=== PATIENT | female | born 1970 | race Caucasian/White ===

== ENCOUNTER 2016-11-21 23:24 | Emergency (ER) | payer MEDICARE, OTHER ==
[~2016-11-21] VITALS: Ht 175.3 cm; Wt 131.5 kg
[~2016-11-21 23:24] MED LIST: ALBU8.5H4 IH; CLON1TAB PO; ESCI20TA PO; GABA100C PO; LAMO150T2 PO
[2016-11-21 23:51] VITALS: BP 174/108
[2016-11-22] MEDS ORDERED: HYDROCODONE/APAP 10/325MG 1 EA TABLET ONE (00:16)
[2016-11-22] MEDS ORDERED: HYDROCODONE/APAP 10/325MG 1 EA TABLET PO ONE (00:30)
== END 2016-11-22 00:23 | disposition home or self-care (01) ==
LOC: ER 23:26
DX: K04.7 Periapical abscess without sinus (principal); J45.909 Unspecified asthma, uncomplicated; E11.9 Type 2 diabetes mellitus without complications; F41.0 Panic disorder [episodic paroxysmal anxiety]; F43.10 Post-traumatic stress disorder, unspecified; F32.9 Major depressive disorder, single episode, unspecified; F17.200 Nicotine dependence, unspecified, uncomplicated; Z90.710 Acquired absence of both cervix and uterus; Z88.0 Allergy status to penicillin; Z88.6 Allergy status to analgesic agent; Z88.5 Allergy status to narcotic agent; Z88.1 Allergy status to other antibiotic agents; Z88.8 Allergy status to other drugs, medicaments and biological substances; Z98.890 Other specified postprocedural states
CPT/HCPCS: 99283; A4606; Z7610

== ENCOUNTER 2017-06-12 09:24 | Outpatient (CLI) | payer MEDICARE, OTHER | END 2017-06-12 23:59 | disposition home or self-care (01) | LOC: MRI 09:24 | PROVIDERS: ATTEND Legal Medicine | DX: M75.102 Unspecified rotator cuff tear or rupture of left shoulder, not specified as traumatic (principal); M75.02 Adhesive capsulitis of left shoulder | CPT/HCPCS: 73221-TC ==

== ENCOUNTER 2017-07-12 07:30 | Day surgery (SDC) | payer MEDICARE, OTHER ==
[2017-07-12] MEDS ORDERED: MIDAZOLAM HCL 2 MG/2ML VIAL ONE (08:42)
[2017-07-12] MEDS ORDERED: FENTANYL PF 100MCG/2ML AMPUL ONE (08:43)
[2017-07-12] MEDS ORDERED: methylPREDNISolone ACETATE 80 MG/ML VIAL ONE (10:04)
[2017-07-12] MEDS ORDERED: LIDOCAINE 1% INJ 50 ML MDV IJ ONE (10:04)
[2017-07-12] MEDS ORDERED: HYDROMORPHONE INJ 2 MG/ML DISP.SYRIN ONE ×2 (10:58→11:32)
[2017-07-12] MEDS ORDERED: ONDANSETRON HCL/PF 4 MG/2 ML VIAL ONE (11:32)
== END 2017-07-12 12:50 | disposition home or self-care (01) ==
LOC: DS 07:30
PROVIDERS: ATTEND Specialist
DX: M75.42 Impingement syndrome of left shoulder (principal); M19.012 Primary osteoarthritis, left shoulder; M65.812 Other synovitis and tenosynovitis, left shoulder; F32.9 Major depressive disorder, single episode, unspecified; F41.9 Anxiety disorder, unspecified; K21.9 Gastro-esophageal reflux disease without esophagitis; E11.9 Type 2 diabetes mellitus without complications; I10 Essential (primary) hypertension; J44.9 Chronic obstructive pulmonary disease, unspecified; F17.210 Nicotine dependence, cigarettes, uncomplicated; E66.01 Morbid (severe) obesity due to excess calories; Z88.8 Allergy status to other drugs, medicaments and biological substances; Z88.1 Allergy status to other antibiotic agents; Z90.710 Acquired absence of both cervix and uterus; Z98.890 Other specified postprocedural states; Z79.899 Other long term (current) drug therapy
CPT/HCPCS: 82962-TC; A4217; A4565; J0690; J1040; J1100; J1170; J2250; J2405; J2704; J3010; J3490; Z7610

== ENCOUNTER 2017-07-16 21:03 | Emergency (ER) | payer MEDICARE, OTHER ==
[~2017-07-16] VITALS: Ht 175.3 cm; Wt 133.4 kg
--- NOTE | 2017-07-16 21:03 | NUR ---
BIB FRIEND C/O L SHOULDER PAIN S/P SURGERY HERE ON MONDAY. VSS NAD A/OX4 ABLE TO MAKE NEEDS KNOWN. WILL CONTINUE TO MONITOR FOR ANY CHANGES DURING THE SHIFT.
--- NOTE | 2017-07-16 22:37 | NUR ---
ER MD VITALE AT BEDSIDE
[2017-07-16 23:07] VITALS: BP 129/81
== END 2017-07-16 23:08 | disposition home or self-care (01) ==
LOC: ER 21:06
DX: G89.18 Other acute postprocedural pain (principal); M25.512 Pain in left shoulder; E11.9 Type 2 diabetes mellitus without complications; F32.9 Major depressive disorder, single episode, unspecified; F41.9 Anxiety disorder, unspecified; I10 Essential (primary) hypertension; J45.909 Unspecified asthma, uncomplicated; F17.200 Nicotine dependence, unspecified, uncomplicated; M75.102 Unspecified rotator cuff tear or rupture of left shoulder, not specified as traumatic; M75.42 Impingement syndrome of left shoulder; Z90.710 Acquired absence of both cervix and uterus; Z88.6 Allergy status to analgesic agent
CPT/HCPCS: A4606; Z7610

== ENCOUNTER 2018-01-30 16:06 | Inpatient (IN) | payer MEDICARE, OTHER ==
[~2018-01-30] VITALS: Ht 172.7 cm; Wt 124.7 kg
[2018-01-30 17:20] VITALS: BP 141/89
--- NOTE | 2018-01-30 18:00 | NUR ---
MS RN RECEIVED A NEW ADMISSION,UNDER DR. MARIE, 47 YEAR OLD FEMALE,CAME IN W/ COMPLAIN OF ABDOMINAL PAIN, NOT IN ANY FORM OF DISTRESS. AWAKE ALERT,ORIENTED X4,DENIES PAIN AT THIS TIME,ALL NEEDS ATTENDED.
--- NOTE | 2018-01-30 18:48 | NUR ---
MS AIR MOVING TECHNICIAN DONE, PAGED DR. MARIE FOR ADMISSION ORDERS.
[2018-01-30] MEDS ORDERED: ALBU18HF2 INH (18:50)
[2018-01-30] MEDS ORDERED: METF-442 PO (18:50)
[2018-01-30] MEDS ORDERED: ESCI20TA PO (18:50)
[2018-01-30] MEDS ORDERED: CLON1TAB PO (18:50)
[2018-01-30] MEDS ORDERED: GABA600T12 PO (18:50)
[2018-01-30] MEDS ORDERED: LAMO150T2 PO (18:50)
[2018-01-30] MEDS ORDERED: CLON0.1T PO (18:50)
[2018-01-30] MEDS ORDERED: TRINTELLIX (18:50)
[2018-01-30] MEDS ORDERED: GUAI600T53 PO (18:50)
[2018-01-30] MEDS ORDERED: CLON2TAB PO (18:50)
[2018-01-30] MEDS ORDERED: DEXL60CA3 PO (18:50)
[2018-01-30] MEDS ORDERED: LURA40TA PO (18:50)
[2018-01-30] MEDS ORDERED: HYDR-4354 PO (18:50)
[2018-01-30 18:51] VITALS: BP 141/89
--- NOTE | 2018-01-30 19:00 | NUR ---
MS RN ON BED, NO DISTRESS NOTED, WILL ENDORSED TO COMPUTER HARDWARE DEVELOPER FOR CONTINUITY OF CARE.
--- NOTE | 2018-01-30 19:30 | NUR ---
MS RN OPENING NOTES: RECEIVED PT ON ROOM AIR AND IS TOLERATING WELL. NO S/S OF DISTRESS. NO SOB NOTED. PT SITTING UP AT BEDSIDE AT THIS TIME WITH CAREGIVER AT BEDSIDE. NO IV NOTED. NO DIET ORDER FOR NOW. INFORMED PT THAT SHE WILL BE UPDATED ONCE MD CALLS BACK. BED KEPT IN LOW, LOCKED POSITION, AND SIDE RAILS X 2UP. WILL CONTINUE TO MONITOR PT.
--- NOTE | 2018-01-30 19:43 | NUR ---
MS RN NOTES: PAGED DR. MARIE. LEFT VOICEMAIL. AWAITING CALL BACK FOR ORDERS.
--- NOTE | 2018-01-30 19:49 | NUR ---
MS RN NOTES: SPOKE WITH DR. MARIE. GOT ORDER FOR CLEAR LIQUIDS TONIGHT AND NPO POST MIDNIGHT. ALSO GOT ORDER FOR NICOTINE 21GRAM PATCH STARTING TONIGHT. ORDER FOR MORPHINE SULF 2 MG IV Q4HR PRN PAIN, TYLENOL 650MG PO Q6HR FOR HEADACHE, MILD PAIN, TEMPERATURE; LABS TONIGHT CBC, CMP, AMYLASE, LIPASE, HEPATIC PANEL. FOR AM: US AB IN AM, CT AB/PELVIS WITH ORAL CONTRAST. IN ADDITION. ORDERS FOR ACCUCHEKS ACHS LOW SLIDING SCAIL, PROTONIX 40MG IV Q12HR TONIGHT AND ZOFRAN 4MG Q6HR IV N/V. ADMIT TO MEDSURG AB PAIN WITH N/V , ACTIVITY BR WITH BRP. Addendum: 01/31/18 at 0229 by JANIS SULTANA RN SLIDING SCALE ZOFRAN 4MG IV Q6HR PRN
[2018-01-30 20:00] VITALS: BP 134/71
[2018-01-30] MEDS ORDERED: DEXTROSE 50%-WATER 50 ML DISP.SYRIN IV PRN (20:00)
[2018-01-30] MEDS ORDERED: NICOTINE PATCH (21MG) 21 MG PATCH.TD24 TD SCH (20:00)
[2018-01-30] MEDS ORDERED: GUAIFENESIN LA 600 MG TABLET.SA PO PRN (20:00)
[2018-01-30] MEDS ORDERED: HYDROCODONE/APAP 10/325MG 1 EA TABLET PO PRN (20:00)
[2018-01-30] MEDS ORDERED: ONDANSETRON HCL/PF 4 MG/2 ML VIAL IV PRN (20:00)
[2018-01-30] MEDS ORDERED: ACETAMINOPHEN 325 MG TABLET PO PRN (20:00)
[2018-01-30] MEDS ORDERED: TEMAZEPAM 15 MG CAPSULE PO PRN (20:00)
[2018-01-30] MEDS ORDERED: HYDROMORPHONE 1 MG/1 ML DISP.SYRIN IV PRN ×2 (20:30→21:00)
--- NOTE | 2018-01-30 20:30 | NUR ---
RN NOTES: PT ABLE TO PROVIDE LATUDA 20MG. BOTTLE BROUGHT TO PHARMACY. ALSO, PT NOT ABLE TO PROVIDE TRINTELLIX 5MG. Addendum: 01/31/18 at 0257 by JANIS SULTANA RN ASKED PT IF THERE ARE ANY OTHER MEDICATIONS IN PURSE. PT GUARDED ABOUT HAVING PURSE/BELONGINGS CHECKED. PT DENIED ANY OTHER MEDS WITH HER BELONGINGS.
[2018-01-30] MEDS ORDERED: IV NS 0.9% 1,000 ML BAG IV PRN (21:00)
[2018-01-30] MEDS ORDERED: IV NS 0.9% 1,000 ML IV PRN (21:00)
--- NOTE | 2018-01-30 21:06 | NUR ---
RN NOTES: NICODERM PATCH 21 MG PLACED ON LEFT UPPER ARM.
--- NOTE | 2018-01-30 21:08 | NUR ---
MS RN NOTES: PT REQUESTING TO HAVE CLONIDINE AND LATUDA AT 2230.
[2018-01-30 21:35] LABS: CALCIUM, SERUM 8.9 mg/dL (8.5-10.1); CREATININE 0.9 mg/dL (0.6-1.3); POTASSIUM 3.9 mmol/L (3.5-5.1)
[2018-01-30 21:39] LABS: BASOPHILS # (AUTO) 0.1 /CMM (0.0-0.2); BASOPHILS % (AUTO) 0.7 % (0.0-2.0); EOSINOPHILS % (AUTO) 5.3 % (0.0-6.0); HEMATOCRIT 40 % (33-45); HEMOGLOBIN 13.1 g/dL (11.5-14.8); LYMPHOCYTES # (AUTO) 4.8 /CMM (0.8-4.8); LYMPHOCYTES % (AUTO) 41.9 % (20.0-44.0); MEAN CORPUSCULAR HGB CONC 33 g/dl (31.0-36.0); MEAN CORPUSCULAR VOLUME 85 fL (82-100); MONOCYTES # (AUTO) 0.5 /CMM (0.1-1.30); NEUTROPHILS # (AUTO) 5.5 /CMM (1.8-8.9); NEUTROPHILS % (AUTO) 48.1 % (43.0-81.0); PLATELET COUNT (AUTO) 240 /CMM (150-450); WHITE BLOOD COUNT (AUTO) 11.4 K/uL (4.3-11.0)
--- NOTE | 2018-01-30 21:40 | NUR ---
MS RN NOTES: SPOKE WITH [facility]. NO NEED FOR CONSENT OR CHECKLIST FOR CT AB/PELVIS WITH ORAL CONTRAST. JUST TO BE NPO POST MIDNIGHT.
[2018-01-30 21:41] LABS: ALBUMIN 3.2 g/dL (3.4-5.0); BILIRUBIN,DIRECT 0.1 mg/dL (0.0-0.2); BILIRUBIN,TOTAL 0.3 mg/dL (0.2-1.0); TOTAL PROTEIN, SERUM 7.4 g/dL (6.4-8.2)
--- NOTE | 2018-01-30 21:47 | NUR ---
MS NDIAYE NOTES: PAGED DR. MARIE. Addendum: 01/31/18 at 0254 by JANIS SULTANA RN PT REQUESTING FOR DIFLUCAN FOR HER YEAST INFECTION AND BENADRYL FOR ITCHINESS. LEFT VOICEMAIL.
[2018-01-30] MEDS ORDERED: clonazePAM 1 MG TABLET PO SCH (22:00)
[2018-01-30] MEDS ORDERED: LATUDA 20 MG PO SCH (22:00)
[2018-01-30] MEDS: CLONIDINE HCL 0.1 MG TABLET PO SCH (22:31)
[2018-01-30] MEDS: BLOOD SUGAR DIAGNOSTIC 1 EACH STRIP IN SCH (22:31)
[2018-01-30] MEDS: INSULIN REGULAR, HUMAN 100 UNIT/ML 3 ML VIAL SQ PRN (22:46)
--- NOTE | 2018-01-30 22:50 | NUR ---
MS NDIAYE NOTES: BLOOD SUGAR WAS 321. 8 UNITS OF INSULIN WAS ADMINISTERED. PROVIDED JUICE TO PT. INSTRUCTED PT THAT SHE WILL BE NPO POST MIDNIGHT. Addendum: 01/31/18 at 0152 by JANIS SULTANA RN ARIAS ROMERO PROVIDED WELL.
[2018-01-30] MEDS: GABAPENTIN 300 MG CAPSULE PO SCH (23:12)
[2018-01-30] MEDS: PANTOPRAZOLE 40 MG VIAL IV SCH (23:13)
--- NOTE | 2018-01-30 23:15 | NUR ---
RN NOTES: PROTONIX IV JUST ADMINISTERED D/T PT REQUIRING IV. ACCU-VEIN OBTAINED TO START IV ON L HAND #22G.
[2018-01-31] MEDS ORDERED: ALBUTEROL FS 2.5 MG/0.5 ML VIAL.NEB NEB PRN (01:30)
[2018-01-31 04:00] VITALS: BP 115/63
[2018-01-31] MEDS: BLOOD SUGAR DIAGNOSTIC 1 EACH STRIP IN SCH (06:13)
--- NOTE | 2018-01-31 06:41 | NUR ---
MS RN CLOSING NOTES: ALL NEEDS WERE ATTENDED AND ANTICIPATED FOR. PT ASLEEP AT THIS TIME RESTING COMFORTABLY. PT HAS BEEN NPO SINCE MIDNIGHT. IV REMAINS BEING INFUSED AT NS 75ML/HR. BED KEPT IN LOW, LOCKED POSITION, AND SIDE RAILS X 2UP. WILL ENDORSE TO AM NURSE FOR CHERRIE.
[2018-01-31] MEDS: INSULIN REGULAR, HUMAN 100 UNIT/ML 3 ML VIAL SQ PRN (07:00)
--- NOTE | 2018-01-31 07:04 | NUR ---
MS RN NOTES: PT DOES NOT WANT NICOTINE PATCH ON HER LEFT ARM. EXPLAINED X 3. PT DOES NOT WANT IT SHE WANTS TO SLEEP AND IT HAS BEEN DISTURBING WITH HER SLEEP. NICODERM PATCH ON LEFT UPPER ARM REMOVED.
--- NOTE | 2018-01-31 07:06 | NUR ---
RN NOTES: L NARE MRSA SWAB COLLECTED AND PLACED IN REFRIGERATOR.
--- NOTE | 2018-01-31 07:30 | NUR ---
RN MS NOTES PT IN BED, ASLEEP, EASY TO AROUSE, NO COMPLAINT OF PAIN, RESPIRATIONS NORMAL, CALL LIGHT WITHIN REACH, IV FLUIDS INFUSING WELL, KEPT USED CAR LOT ATTENDANT BED.
[2018-01-31 08:00] VITALS: BP 106/61
[2018-01-31 09:00] VITALS: BP 106/61
[2018-01-31] MEDS ORDERED: clonazePAM 1 MG TABLET PO SCH (09:00)
[2018-01-31] MEDS: GABAPENTIN 300 MG CAPSULE PO SCH (09:00)
[2018-01-31] MEDS ORDERED: diphenhydrAMINE HCL 50 MG/ML VIAL IV PRN (09:00)
[2018-01-31] MEDS: CLONIDINE HCL 0.1 MG TABLET PO SCH (09:00)
[2018-01-31] MEDS ORDERED: ESCITALOPRAM OXALATE (10 MG) 10 MG TABLET PO SCH (09:00)
[2018-01-31] MEDS ORDERED: LamoTRIgine 100 MG TABLET PO SCH (09:00)
[2018-01-31] MEDS ORDERED: TRINTELLIX 5 MG SCH (09:00)
[2018-01-31] MEDS ORDERED: NICOTINE PATCH (14MG) 14 MG PATCH.TD24 TD SCH (09:00)
[2018-01-31] MEDS: PANTOPRAZOLE 40 MG VIAL IV SCH (09:00)
[2018-01-31] MEDS ORDERED: GABAPENTIN 300 MG CAPSULE PO SCH (09:00)
--- NOTE | 2018-01-31 09:00 | NUR ---
RN MS NOTES PT IN BED, SEEN BY DR. MARIE, PLAN OF CARE DISCUSSED WITH PT, VERBALIZED UNDERSTANDING, NEW ORDERS GIVEN BY MD, NOTED AND CARRIED OUT.
[2018-01-31] MEDS ORDERED: DIATR MEGLU/DIATRIZOATE SODIUM 30 ML BOTTLE (GASTROGRAPHIN) ONE (09:46)
--- NOTE | 2018-01-31 11:00 | NUR ---
RN MS NOTES PT IN BED, AWAKE, ALERT AND ORIENTED, NO COMPLAINT OF PAIN, NO NAUSEA, VOMITING OR DIARRHEA, PT REFUSED TO TAKE THE ORAL CONTRAST AND STATED THAT SHE DOES NOT WANT TO WAIT FOR 3 HOURS AND DO THE TEST, PER PT, SHE IS NOT AWARE THAT SHE WILL HAVE TO WAIT FOR 3 HOURS BEFORE THEY CAN DO THE CT SCAN BECAUSE OF THE ORAL CONTRAST, ALSO STATED THAT SHE DOES NOT WANT TO WAIT ANYMORE AND WANTS TO GO HOME, SHE SAID SHE IS NOT READY TO DO THIS NOW, DR. MARIE INFORMED OF THE PT'S DESIRE TO GO HOME, PER DR. MARIE, OK TO DISCHARGE PT AND TO CONTINUE HOME MEDS, EDUCATED PT TO FOLLOW UP WITH DR. MARIE AND TO CONTINUE WITH HER HOME MEDS, VERBALIZED UNDERSTANDING, BELONGINGS ACCOUNTED FOR, OWN MED FROM PHARMACY GIVEN TO PT, OFFERED FOOD TO PT BUT REFUSED, PROVIDED PT WITH JUICE AND CRACKERS, OFFERED WHEELCHAIR BUT PT REFUSED, PICKED UP BY CAREGIVER, ASSISTED TO HOSPITAL LOBBY, LEFT IN STABLE CONDITION.
== END 2018-01-31 11:00 | disposition home or self-care (01) | DRG 392 ==
LOC: MED 17:03
PROVIDERS: ADMIT Legal Medicine; ATTEND Legal Medicine
DX: A08.4 Viral intestinal infection, unspecified (principal); Z68.41 Body mass index [BMI] 40.0-44.9, adult; E44.1 Mild protein-calorie malnutrition; I10 Essential (primary) hypertension; F41.9 Anxiety disorder, unspecified; F32.9 Major depressive disorder, single episode, unspecified; E66.9 Obesity, unspecified; E11.65 Type 2 diabetes mellitus with hyperglycemia; Z88.8 Allergy status to other drugs, medicaments and biological substances
CPT/HCPCS: 36415; 80053-TC; 80076-TC; 82150-TC; 82962-TC; 83690-TC; 85025-TC; 87081-TC; C9113; G0378; J1170; J1815; J7030; Q9963

== ENCOUNTER 2018-06-23 22:26 | Emergency (ER) | payer MEDICARE, OTHER ==
[~2018-06-23] VITALS: Ht 172.7 cm; Wt 119.7 kg
[~2018-06-23 22:26] MED LIST changes: +ALBU18HF2 INH; -ALBU8.5H4 IH; +CLON0.1T PO; +CLON2TAB PO; +DEXL60CA3 PO; -GABA100C PO; +GABA600T12 PO; +GUAI600T53 PO; +HYDR-4354 PO; +LURA40TA PO; +METF-442 PO; +TRINTELLIX
--- NOTE | 2018-06-23 22:38 | NUR ---
CALLED PATIENT IN [place], WAS TOLD BY FAMILY MEMBER PATIENT WAS OUTSIDE SMOKING.
[2018-06-23 22:58] VITALS: BP 147/90
--- NOTE | 2018-06-24 00:04 | NUR ---
PT LEFT BEFORE [facility]
== END 2018-06-24 00:04 | disposition home or self-care (01) ==
LOC: ER 22:28
DX: F41.9 Anxiety disorder, unspecified (principal); I10 Essential (primary) hypertension; J45.909 Unspecified asthma, uncomplicated; K21.9 Gastro-esophageal reflux disease without esophagitis; E11.9 Type 2 diabetes mellitus without complications; F32.9 Major depressive disorder, single episode, unspecified; F17.200 Nicotine dependence, unspecified, uncomplicated; Z90.710 Acquired absence of both cervix and uterus; Z98.890 Other specified postprocedural states; Z88.6 Allergy status to analgesic agent; Z88.1 Allergy status to other antibiotic agents; Z60.2 Problems related to living alone

== ENCOUNTER 2018-07-27 09:31 | Outpatient (CLI) | payer MEDICARE, OTHER | END 2018-07-27 23:59 | disposition home or self-care (01) | LOC: MRI 09:31 | PROVIDERS: ATTEND Legal Medicine | DX: M48.061 Spinal stenosis, lumbar region without neurogenic claudication (principal); M51.26 Other intervertebral disc displacement, lumbar region; M46.97 Unspecified inflammatory spondylopathy, lumbosacral region | CPT/HCPCS: 72148-TC ==

== ENCOUNTER 2018-08-15 23:28 | Emergency (ER) | payer MEDICARE, BC, OTHER ==
[~2018-08-15] VITALS: Ht 175.3 cm; Wt 119.3 kg
--- NOTE | 2018-08-15 23:42 | NUR ---
BIBS FOR C/O SOB X 1 SINCE YESTERDAY, WORSE TODAY. PMH: ASTHMA.SATTING 97% ON RA. VSS. PLACED ON A MONITOR
[2018-08-15] MEDS ORDERED: Magnesium 1GM/D5W 100ML PREMIX 200 ML IV ONE (23:44)
[2018-08-15] MEDS ORDERED: ALBUTEROL FS 2.5 MG/3 ML VIAL.NEB ONE (23:50)
[2018-08-15] MEDS ORDERED: IPRATROPIUM NEB FS 0.5 MG/2.5 ML AMPUL.NEB ONE (23:50)
[2018-08-15] MEDS ORDERED: methylPREDNISolone SOD SUCC 125 MG/2ML VIAL ONE (23:55)
[2018-08-15] MEDS ORDERED: Magnesium 1GM/D5W 100ML PREMIX 100 ML IV ONE (23:55)
[2018-08-16] MEDS ORDERED: IPRATROPIUM NEB FS 0.5 MG/2.5 ML AMPUL.NEB NEB ONE
[2018-08-16] MEDS ORDERED: ALBUTEROL FS 2.5 MG/3 ML VIAL.NEB NEB ONE
[2018-08-16] MEDS ORDERED: IV NS 0.9% 1,000 ML BAG IV ONE
[2018-08-16] MEDS ORDERED: methylPREDNISolone SOD SUCC 125 MG/2ML VIAL IV ONE
--- NOTE | 2018-08-16 00:09 | NUR ---
NS ENDINFUSION TIME FOR NS: 0109 PER MD TO INFUSE EACH BAG OF 1 GR MG WITHIN 10 MINUTES: END INFUSION TIME FOR 1ST MG BA IV SITE: L HAND 22G
[2018-08-16] MEDS ORDERED: Magnesium 1GM/D5W 100ML PREMIX 100 ML IV ONE (00:12)
--- NOTE | 2018-08-16 00:20 | NUR ---
SECOND BAG OF MG WAS ADMINISTERED. END INFUSION TIME FOR THE 2ND MG BA
--- NOTE | 2018-08-16 02:37 | NUR ---
AWAKE AND ALERT , SITTING IN BED. RT AT THE BED SIDE FOR ABG DRAW
[2018-08-16 02:48] LABS: ABG BASE EXCESS -0.6 mmol/L; ABG OXYGEN SATURATION 92.5 % (92.0-98.5); ABG PCO2 36.4 mmHg (35.0-45.0); ABG PH 7.425 (7.350-7.450); ABG PO2 64.5 mmHg (75.0-100.0); AaDO2 41.6 mmHg; COHb 3.1 % (0.5-1.5); MetHb 0.5 % (0.0-1.5); O2Hb 89.2 % (94.0-97.0); SITE, ABG Left Radial; VENT MODE, BG RA
--- NOTE | 2018-08-16 03:33 | NUR ---
Patient discharged to home in stable condition. Rx & Written and verbal after care instructions given. Patient verbalizes understanding of instruction.
[2018-08-16 03:58] VITALS: BP 144/85
== END 2018-08-16 03:59 | disposition home or self-care (01) ==
LOC: ER 23:35
DX: J45.901 Unspecified asthma with (acute) exacerbation (principal); F17.210 Nicotine dependence, cigarettes, uncomplicated; K21.9 Gastro-esophageal reflux disease without esophagitis; F32.9 Major depressive disorder, single episode, unspecified; F41.9 Anxiety disorder, unspecified; E11.9 Type 2 diabetes mellitus without complications; I10 Essential (primary) hypertension; G89.29 Other chronic pain; M54.5 Low back pain; Z90.710 Acquired absence of both cervix and uterus; Z98.890 Other specified postprocedural states; Z88.6 Allergy status to analgesic agent; Z88.1 Allergy status to other antibiotic agents; Z60.2 Problems related to living alone
CPT/HCPCS: 36600 ×2; 71045; 82803; 93005 ×2; 94644; 96374; 96375; 99285; J2930; J3475 ×2; J7030

== ENCOUNTER 2018-08-22 11:14 | Emergency (ER) | payer MEDICARE, OTHER ==
[~2018-08-22] VITALS: Ht 172.7 cm; Wt 118.8 kg
--- NOTE | 2018-08-22 11:31 | NUR ---
C/O SOB, CHEST TIGHTNESS X 5 DAYS. WAS PREVIOUSLY TREATED FOR THE SAME WITHOUT IMPROVEMENT. O2 SAT 95% ON RA. NO ACUTE DISTRESS NOTED. NO OTHER COMPLAINTS AT THIS TIME. READY FOR EVAL.
[2018-08-22] MEDS ORDERED: predniSONE 20 MG TABLET ONE (11:43)
[2018-08-22] MEDS ORDERED: IPRATROPIUM NEB FS 0.5 MG/2.5 ML AMPUL.NEB ONE (11:48)
[2018-08-22] MEDS ORDERED: ALBUTEROL FS 2.5 MG/3 ML VIAL.NEB ONE (11:48)
--- NOTE | 2018-08-22 11:52 | NUR ---
RT AT BEDSIDE FOR BREATHING TX
[2018-08-22] MEDS ORDERED: predniSONE 20 MG TABLET PO ONE (12:00)
[2018-08-22] MEDS ORDERED: ALBUTEROL FS 2.5 MG/3 ML VIAL.NEB CONTNEB ONE (12:00)
[2018-08-22] MEDS ORDERED: IPRATROPIUM NEB FS 0.5 MG/2.5 ML AMPUL.NEB NEB ONE (12:00)
[2018-08-22] MEDS ORDERED: Magnesium 1GM/D5W 100ML PREMIX 200 ML IV ONE (12:12)
[2018-08-22] MEDS ORDERED: Magnesium 1GM/D5W 100ML PREMIX 0 ML IV ONE (12:17)
[2018-08-22 12:46] VITALS: BP 148/86
--- NOTE | 2018-08-22 12:46 | NUR ---
Patient discharged to home in stable condition. Written and verbal after care instructions given. Patient verbalizes understanding of instruction.
--- NOTE | 2018-08-22 12:53 | NUR ---
UNABLE TO DEPART PT. ADVANCED STATUS OFF ER TRACKER PER SECURITY GUARD SUPERVISOR
== END 2018-08-22 12:51 | disposition home or self-care (01) ==
LOC: ER 11:14
DX: J45.901 Unspecified asthma with (acute) exacerbation (principal); E11.9 Type 2 diabetes mellitus without complications; I10 Essential (primary) hypertension; K21.9 Gastro-esophageal reflux disease without esophagitis; F32.9 Major depressive disorder, single episode, unspecified; F41.9 Anxiety disorder, unspecified; F17.200 Nicotine dependence, unspecified, uncomplicated; Z90.710 Acquired absence of both cervix and uterus; Z98.890 Other specified postprocedural states; Z88.6 Allergy status to analgesic agent; Z88.1 Allergy status to other antibiotic agents; Z60.2 Problems related to living alone
CPT/HCPCS: 94640 ×2; 99284; J7512; J3475

== ENCOUNTER 2018-12-17 22:46 | Emergency (ER) | payer MEDICARE, OTHER ==
[~2018-12-17] VITALS: Ht 172.7 cm; Wt 119.7 kg
--- NOTE | 2018-12-17 22:48 | NUR ---
"BIBSELF C/O MIDSTERNAL CHEST PAIN RADIATING TO BACK X1 WEEK, WORSE TODAY +SOB, -HEADACHE, -NAUSEA, -VOMITING" PT AAOX4, -SOB, NAD NOTED, VSS ,NELSON MURPHY
[2018-12-17] MEDS ORDERED: diphenhydrAMINE HCL 50 MG CAPSULE ONE (23:21)
[2018-12-17] MEDS ORDERED: ONDANSETRON 4 MG TAB.RAPDIS ONE (23:21)
[2018-12-17] MEDS ORDERED: HYDROCODONE/APAP 10/325MG 1 EA TABLET ONE (23:21)
[2018-12-17 23:24] LABS: BASOPHILS # (AUTO) 0.1 /CMM (0.0-0.2); BASOPHILS % (AUTO) 0.6 % (0.0-2.0); EOSINOPHILS % (AUTO) 5.8 % (0.0-6.0); HEMATOCRIT 42 % (33-45); HEMOGLOBIN 14.3 g/dL (11.5-14.8); LYMPHOCYTES # (AUTO) 4.1 /CMM (0.8-4.8); MEAN CORPUSCULAR HGB CONC 34 g/dl (31.0-36.0); MEAN CORPUSCULAR VOLUME 89 fL (82-100); MONOCYTES # (AUTO) 0.5 /CMM (0.1-1.30); MONOCYTES % (AUTO) 4.6 % (2.0-12.0); NEUTROPHILS # (AUTO) 5.5 /CMM (1.8-8.9); PLATELET COUNT (AUTO) 252 /CMM (150-450); RED BLOOD CELL COUNT(AUTO) 4.65 MIL/uL (4.0-5.2); WHITE BLOOD COUNT (AUTO) 10.9 K/uL (4.3-11.0)
[2018-12-17] MEDS ORDERED: diphenhydrAMINE HCL 50 MG CAPSULE PO ONE (23:30)
[2018-12-17] MEDS ORDERED: HYDROCODONE/APAP 10/325MG 1 EA TABLET PO ONE (23:30)
[2018-12-17] MEDS ORDERED: ONDANSETRON 4 MG TAB.RAPDIS SL ONE (23:30)
[2018-12-17 23:46] LABS: ALBUMIN 3.4 g/dL (3.4-5.0); ALKALINE PHOSPHATASE 125 U/L (46-116); B-TYPE NATRIURETIC PEPTIDE 29 PG/ML (0-125); BILIRUBIN,TOTAL 0.4 mg/dL (0.2-1.0); CALCIUM, SERUM 8.3 mg/dL (8.5-10.1); CARBON DIOXIDE 27 mmol/L (21-32); CHLORIDE 97 mmol/L (98-107); POTASSIUM 4.6 mmol/L (3.5-5.1); SODIUM SERUM 130 mmol/L (136-145); TOTAL PROTEIN, SERUM 7.5 g/dL (6.4-8.2); UREA NITROGEN, BLOOD 9 mg/dL (7-18)
[2018-12-17 23:50] LABS: GLUCOSE 412 mg/dL (74-106)
[2018-12-18] MEDS ORDERED: INSULIN REGULAR, HUMAN 100 UNIT/ML 10 ML VIAL ONE (00:14)
[2018-12-18 00:16] LABS: ALANINE AMINOTRANSFERASE 21 U/L (12-78); ASPARTATE AMINOTRANSFERASE 34 U/L (15-37)
--- NOTE | 2018-12-18 01:15 | NUR ---
BG 333 TAKEN AT 0115, DR. AHMADI NOTIFIED. VERBAL ORDER OF 10UNITS OF REGULAR INSULIN TO BE GIVEN IV.
[2018-12-18] MEDS ORDERED: INSULIN REGULAR, HUMAN 100 UNIT/ML 10 ML VIAL IV ONE ×2 (02:00)
--- NOTE | 2018-12-18 02:54 | NUR ---
Patient discharged to home in stable condition. Written and verbal after care instructions given. Patient verbalizes understanding of instruction. IV removed. Catheter intact and site benign. Pressure and 4x4 applied to site. No bleeding noted.
[2018-12-18 02:55] VITALS: BP 121/60
== END 2018-12-18 02:57 | disposition home or self-care (01) ==
LOC: ER 22:49
DX: R07.89 Other chest pain (principal); G89.4 Chronic pain syndrome; E66.9 Obesity, unspecified; F41.9 Anxiety disorder, unspecified; F32.9 Major depressive disorder, single episode, unspecified; I10 Essential (primary) hypertension; J45.909 Unspecified asthma, uncomplicated; K21.9 Gastro-esophageal reflux disease without esophagitis; E11.9 Type 2 diabetes mellitus without complications; F17.200 Nicotine dependence, unspecified, uncomplicated; Z90.710 Acquired absence of both cervix and uterus; Z98.890 Other specified postprocedural states; Z88.6 Allergy status to analgesic agent; Z88.1 Allergy status to other antibiotic agents; Z60.2 Problems related to living alone; Z79.899 Other long term (current) drug therapy; Z71.6 Tobacco abuse counseling; Z68.41 Body mass index [BMI] 40.0-44.9, adult
CPT/HCPCS: 36415 ×2; 71045; 76705; 80048; 80076; 82010; 82962 ×3; 83690; 83880; 84484 ×2; 85025; 85378; 93005; 96374; 96376; 99284; 99406; J1815; Q0162; Q0163

== ENCOUNTER 2019-01-08 23:08 | Emergency (ER) | payer MEDICARE, OTHER ==
[~2019-01-08] VITALS: Ht 172.7 cm; Wt 118.8 kg
[2019-01-09] MEDS ORDERED: CEPHALEXIN MONOHYDRATE 500 MG CAPSULE PO ONE ×2 (00:28→00:30)
[2019-01-09] MEDS ORDERED: IBUPROFEN 400 MG TABLET ONE (00:29)
[2019-01-09] MEDS ORDERED: SULFAMETH/TRIMETH 800/160 MG 1 UDTAB TABLET ONE (00:29)
[2019-01-09] MEDS ORDERED: SULFAMETH/TRIMETH 800/160 MG 1 UDTAB TABLET PO ONE (00:30)
[2019-01-09] MEDS ORDERED: IBUPROFEN 400 MG TABLET PO ONE (00:30)
--- NOTE | 2019-01-09 00:31 | NUR ---
[facility] STARTING 0030. PT IS IN BED AAOX4. BIBS W/ CG AT BEDSIDE. C/O L BREAST ABCESS . PER PT STARTED A SMALL PIMPLE 3-4 DAYS AGO. NOTED RED BUMP NO DRAINAGE. PAIN 11/29. MD WAS AT BEDSIDE FOR EVAL. ORDERS RECEIVED NOTED AND CARRIED OUT.
--- NOTE | 2019-01-09 01:00 | NUR ---
Patient discharged to home in stable condition. Written and verbal after care instructions given. Patient verbalizes understanding of instruction. Pt ambulatory with a steady gait
--- NOTE | 2019-01-09 01:50 | NUR ---
Note undone in EDM - 01/09/19 at 0153 by JACK ASSUMMED CARE STARTING 0030. PT IS IN BED AAOX4. BIBS W/ CG AT BEDSIDE. C/O L BREAST ABCESS . PER PT STARTED A SMALL PIMPLE 3-4 DAYS AGO. NOTED RED BUMP NO DRAINAGE. PAIN 11/29. MD WAS AT BEDSIDE FOR EVAL. ORDERS RECEIVED NOTED AND CARRIED OUT.
[2019-01-09 01:54] VITALS: BP 143/70
== END 2019-01-09 01:10 | disposition home or self-care (01) ==
LOC: ER 23:10
DX: N61.0 Mastitis without abscess (principal); I10 Essential (primary) hypertension; J45.909 Unspecified asthma, uncomplicated; K21.9 Gastro-esophageal reflux disease without esophagitis; E11.9 Type 2 diabetes mellitus without complications; F32.9 Major depressive disorder, single episode, unspecified; F41.9 Anxiety disorder, unspecified; F17.200 Nicotine dependence, unspecified, uncomplicated; Z90.710 Acquired absence of both cervix and uterus; Z98.890 Other specified postprocedural states; Z88.6 Allergy status to analgesic agent; Z88.1 Allergy status to other antibiotic agents; Z60.2 Problems related to living alone; Z79.899 Other long term (current) drug therapy
CPT/HCPCS: 76642-TC

== ENCOUNTER 2019-09-27 19:29 | Emergency (ER) | payer MEDICARE, OTHER ==
[~2019-09-27] VITALS: Ht 175.3 cm; Wt 117.0 kg
--- NOTE | 2019-09-27 19:50 | NUR ---
PT BIBSELF C/O FEVER OF 101.4, NORMAN, UPPER BACK PAIN AND SOB, TOOK ADVIL X4 AT 5PM. PT AOX4 RR EVEN AND UNLABORED. NO SOB NOTED. NO NVD AT THIS TIME. NO ACUTE DISTRESS NOTED. PT WAITING FOR MD MURPHY.
--- NOTE | 2019-09-27 20:27 | NUR ---
RADIOLOGY AT BEDSIDE FOR CXR
--- NOTE | 2019-09-27 20:50 | NUR ---
BLOOD DRAW AND COVID SWAB COLLECTED AND SENT TO LAB
[2019-09-27 20:58] LABS: BASOPHILS # (AUTO) 0.1 /CMM (0.0-0.2); BASOPHILS % (AUTO) 0.7 % (0.0-2.0); EOSINOPHILS % (AUTO) 5.9 % (0.0-6.0); HEMATOCRIT 42 % (33-45); LYMPHOCYTES # (AUTO) 1.3 /CMM (0.8-4.8); LYMPHOCYTES % (AUTO) 16.8 % (20.0-44.0); MEAN CORPUSCULAR HGB CONC 34 g/dl (31.0-36.0); MEAN CORPUSCULAR VOLUME 91 fL (82-100); MONOCYTES # (AUTO) 0.1 /CMM (0.1-1.30); MONOCYTES % (AUTO) 1.4 % (2.0-12.0); NEUTROPHILS % (AUTO) 75.2 % (43.0-81.0); PLATELET COUNT (AUTO) 220 /CMM (150-450); RED BLOOD CELL COUNT(AUTO) 4.58 MIL/uL (4.0-5.2)
[2019-09-27 21:11] LABS: CALCIUM, SERUM 8.8 mg/dL (8.5-10.1); CARBON DIOXIDE 30 mmol/L (21-32); CHLORIDE 97 mmol/L (98-107); CREATININE 0.9 mg/dL (0.6-1.3); GLUCOSE 269 mg/dL (74-106); POTASSIUM 3.9 mmol/L (3.5-5.1); SODIUM SERUM 132 mmol/L (136-145); UREA NITROGEN, BLOOD 8 mg/dL (7-18)
[2019-09-27 21:14] LABS: APPEARANCE,URINE Clear (CLEAR); BILIRUBIN,URINE Negative (NEGATIVE); BLOOD, URINE Negative Ery/uL (NEGATIVE); COLOR,URINE Yellow (YELLOW); KETONES,URINE Negative (NEGATIVE); LEUKOCYTE ESTERASE ,URINE Trace (NEGATIVE); NITRITE, URINE Negative (NEGATIVE); PROTEIN,URINE Negative (NEGATIVE); UGLUCOSE >=1000 mg/dL (NEGATIVE); UROBILINOGEN,URINE 0.2 EU/dL (0.2)
[2019-09-27 21:30] LABS: ALANINE AMINOTRANSFERASE 147 U/L (12-78); ALBUMIN 3.5 g/dL (3.4-5.0); ALKALINE PHOSPHATASE 99 U/L (46-116); ASPARTATE AMINOTRANSFERASE 179 U/L (15-37); B-TYPE NATRIURETIC PEPTIDE 92 PG/ML (0-125); BILIRUBIN,TOTAL 0.7 mg/dL (0.2-1.0)
[2019-09-27 21:34] LABS: BACTERIA,URINE Few /HPF (None Seen); RBC,URINE 0-2 /HPF (0-2)
[2019-09-27 21:49] LABS: D-DIMER 0.65 mg/L(FEU (0.17-0.50)
[2019-09-27] MEDS ORDERED: KETOROLAC TROMETHAMINE INJ 30 MG/ML VIAL IV ONE (22:00)
[2019-09-27] MEDS ORDERED: KETOROLAC TROMETHAMINE INJ 30 MG/ML VIAL ONE (22:10)
[2019-09-27] MEDS ORDERED: IOHEXOL-350 100 ML VIAL IV ONE (22:22)
[2019-09-27] MEDS ORDERED: CT SWABBABLE VALVE TRANS SET 1 EA INFUS.SET MC ONE (22:23)
[2019-09-27 22:28] LABS: CREATINE KINASE, TOTAL 67 U/L (26-192); FERRITIN 242 ng/mL (8-388)
--- NOTE | 2019-09-27 22:47 | NUR ---
PT RETURNED FROM CT.
[2019-09-27 22:48] LABS: C-REACTIVE PROTEIN 9.4 mg/dL (0.0-0.9)
[2019-09-27] MEDS ORDERED: MAG HYDROX/AL HYDROX/SIMETH 30 ML UDC ONE (23:26)
[2019-09-27] MEDS ORDERED: MAG HYDROX/AL HYDROX/SIMETH 30 ML UDC PO ONE (23:30)
--- NOTE | 2019-09-27 23:33 | NUR ---
Patient discharged to home in stable condition. Written and verbal after care instructions given. Patient verbalizes understanding of instruction.IV removed. Catheter intact and site benign. Pressure and 4x4 applied to site. No bleeding noted. Pt ambulatory with a steady gait
[2019-09-27 23:34] VITALS: BP 132/72
== END 2019-09-27 23:37 | disposition home or self-care (01) ==
LOC: ER 19:29
DX: B34.9 Viral infection, unspecified (principal); R50.9 Fever, unspecified; Z20.828 Contact with and (suspected) exposure to other viral communicable diseases; E11.8 Type 2 diabetes mellitus with unspecified complications; Z79.84 Long term (current) use of oral hypoglycemic drugs; J45.909 Unspecified asthma, uncomplicated; Z90.710 Acquired absence of both cervix and uterus; F32.9 Major depressive disorder, single episode, unspecified; F41.0 Panic disorder [episodic paroxysmal anxiety]; Z79.899 Other long term (current) drug therapy; K21.9 Gastro-esophageal reflux disease without esophagitis; E66.9 Obesity, unspecified; I35.0 Nonrheumatic aortic (valve) stenosis; Z83.3 Family history of diabetes mellitus; M54.6 Pain in thoracic spine; Z88.1 Allergy status to other antibiotic agents
CPT/HCPCS: 36415; 71045; 71275; 80053; 81001; 82550; 82728; 83605; 83880; 84145; 84484; 84703; 85025; 85378; 85730; 86140; 87040 ×2; 87086; 93005; 96374; 99285; J1885; Q9967; 81000-TC; C9803-CS; U0003-CS

== ENCOUNTER 2019-12-01 14:35 | Emergency (ER) | payer MEDICARE, OTHER ==
[~2019-12-01] VITALS: Ht 175.3 cm; Wt 113.4 kg
[2019-12-01] MEDS ORDERED: ONDANSETRON HCL/PF 4 MG/2 ML VIAL ONE (14:50)
[2019-12-01] MEDS ORDERED: MORPHINE SULFATE INJ 4 MG/ML DISP.SYRIN ONE (14:50)
[2019-12-01] MEDS ORDERED: ONDANSETRON HCL/PF 4 MG/2 ML VIAL IVP ONE (15:00)
[2019-12-01] MEDS ORDERED: MORPHINE SULFATE INJ 2 MG/ML DISP.SYRIN IV ONE (15:00)
--- NOTE | 2019-12-01 15:03 | NUR ---
pt rec'd to er c/o pain abd since this morning iv starated rt ac 20g labs drawn sent o lab meds given for pain per md order
[2019-12-01 15:07] LABS: BASOPHILS # (AUTO) 0.1 /CMM (0.0-0.2); BASOPHILS % (AUTO) 0.8 % (0.0-2.0); HEMATOCRIT 41 % (33-45); LYMPHOCYTES # (AUTO) 4.2 /CMM (0.8-4.8); LYMPHOCYTES % (AUTO) 40.7 % (20.0-44.0); MEAN CORPUSCULAR HGB CONC 34 g/dl (31.0-36.0); MEAN CORPUSCULAR VOLUME 89 fL (82-100); MONOCYTES # (AUTO) 0.4 /CMM (0.1-1.30); MONOCYTES % (AUTO) 3.9 % (2.0-12.0); NEUTROPHILS % (AUTO) 48.6 % (43.0-81.0); PLATELET COUNT (AUTO) 243 /CMM (150-450); RED BLOOD CELL COUNT(AUTO) 4.62 MIL/uL (4.0-5.2); WHITE BLOOD COUNT (AUTO) 10.3 K/uL (4.3-11.0)
[2019-12-01 15:23] LABS: ALBUMIN 3.4 g/dL (3.4-5.0); BILIRUBIN,DIRECT 0.1 mg/dL (0.0-0.2); BILIRUBIN,TOTAL 0.2 mg/dL (0.2-1.0); CALCIUM, SERUM 8.9 mg/dL (8.5-10.1); POTASSIUM 4.1 mmol/L (3.5-5.1); TOTAL PROTEIN, SERUM 7.6 g/dL (6.4-8.2)
--- NOTE | 2019-12-01 16:44 | NUR ---
PT. VERBALIZED UNDERSTANDING OF AFTERCARE INSTRUCTIONS.IV removed. Catheter intact and site benign. Pressure and 4x4 applied to site. No bleeding noted.Patient discharged to home in stable condition. Written and verbal after care instructions given. Patient verbalizes understanding of instruction.
[2019-12-01 16:45] VITALS: BP 128/75
== END 2019-12-01 16:45 | disposition home or self-care (01) ==
LOC: ER 14:42
DX: R10.12 Left upper quadrant pain (principal); I10 Essential (primary) hypertension; J45.909 Unspecified asthma, uncomplicated; K21.9 Gastro-esophageal reflux disease without esophagitis; E11.9 Type 2 diabetes mellitus without complications; F32.9 Major depressive disorder, single episode, unspecified; Z98.890 Other specified postprocedural states; Z88.6 Allergy status to analgesic agent; Z88.1 Allergy status to other antibiotic agents; Z79.899 Other long term (current) drug therapy; Z79.84 Long term (current) use of oral hypoglycemic drugs
CPT/HCPCS: 36415; 74176; 80048; 80076; 83690; 85025; 96374; 96375; 99284; J2270; J2405

== ENCOUNTER 2020-03-10 10:30 | Outpatient (CLI) | payer MEDICARE, OTHER | END 2020-03-10 23:59 | disposition home or self-care (01) | LOC: MRI 10:30 | PROVIDERS: ATTEND Anesthesiology | DX: M47.27 Other spondylosis with radiculopathy, lumbosacral region (principal); M51.17 Intervertebral disc disorders with radiculopathy, lumbosacral region; M48.07 Spinal stenosis, lumbosacral region; M43.16 Spondylolisthesis, lumbar region | CPT/HCPCS: 72148-TC ==

== ENCOUNTER 2020-06-09 16:41 | Emergency (ER) | payer MEDICARE, OTHER ==
[~2020-06-09] VITALS: Ht 175.3 cm; Wt 117.9 kg
--- NOTE | 2020-06-09 16:57 | NUR ---
THE PATIENT BIBS FOR C/O ANXIETY/PANIC ATTACK X 8 DAYS. ALERT AND ORIENTED X4. DENIES PAIN. IN ROOM AIR AND DENIES SOB. WILL CONTINUE TO MONITOR THE PATIENT.
[2020-06-09 17:29] LABS: BASOPHILS # (AUTO) 0.1 /CMM (0.0-0.2); BASOPHILS % (AUTO) 1.1 % (0.0-2.0); HEMATOCRIT 41 % (33-45); LYMPHOCYTES # (AUTO) 4.5 /CMM (0.8-4.8); LYMPHOCYTES % (AUTO) 39.5 % (20.0-44.0); MEAN CORPUSCULAR HGB CONC 34 g/dl (31.0-36.0); MEAN CORPUSCULAR VOLUME 91 fL (82-100); MONOCYTES # (AUTO) 0.5 /CMM (0.1-1.30); MONOCYTES % (AUTO) 4.5 % (2.0-12.0); NEUTROPHILS # (AUTO) 5.4 /CMM (1.8-8.9); NEUTROPHILS % (AUTO) 47.9 % (43.0-81.0); PLATELET COUNT (AUTO) 266 /CMM (150-450); RED BLOOD CELL COUNT(AUTO) 4.55 MIL/uL (4.0-5.2); WHITE BLOOD COUNT (AUTO) 11.3 K/uL (4.3-11.0)
[2020-06-09 17:40] LABS: CALCIUM, SERUM 9.1 mg/dL (8.5-10.1); CARBON DIOXIDE 28 mmol/L (21-32); CHLORIDE 100 mmol/L (98-107); CREATININE 0.8 mg/dL (0.6-1.3); GLUCOSE 244 mg/dL (74-106); POTASSIUM 3.6 mmol/L (3.5-5.1); SODIUM SERUM 137 mmol/L (136-145); UREA NITROGEN, BLOOD 10 mg/dL (7-18)
[2020-06-09 19:10] LABS: B-TYPE NATRIURETIC PEPTIDE 128 PG/ML (0-125)
--- NOTE | 2020-06-09 19:26 | NUR ---
PT IS MEDICALLY STBALE FOR D/C. Patient discharged to home in stable condition. Written and verbal after care instructions given. Patient verbalizes understanding of instruction.
[2020-06-09 19:28] VITALS: BP 144/80
--- NOTE | 2020-06-09 19:29 | NUR ---
Patient discharged to home in stable condition. Written and verbal after care instructions given. Patient verbalizes understanding of instruction. The patient left ER in stable condition.
== END 2020-06-09 19:28 | disposition home or self-care (01) ==
LOC: ER 16:44
DX: F41.9 Anxiety disorder, unspecified (principal); I10 Essential (primary) hypertension; K21.9 Gastro-esophageal reflux disease without esophagitis; J45.909 Unspecified asthma, uncomplicated; E11.9 Type 2 diabetes mellitus without complications; F32.9 Major depressive disorder, single episode, unspecified; F17.200 Nicotine dependence, unspecified, uncomplicated; Z98.890 Other specified postprocedural states; Z88.6 Allergy status to analgesic agent; Z88.1 Allergy status to other antibiotic agents; Z79.899 Other long term (current) drug therapy; Z79.84 Long term (current) use of oral hypoglycemic drugs
CPT/HCPCS: 36415; 71045-TC; 80048-TC; 83880; 84484-TC; 85025-TC; 85378-TC

== ENCOUNTER 2020-06-20 09:44 | Emergency (ER) | payer MEDICARE, OTHER ==
[~2020-06-20] VITALS: Ht 175.3 cm; Wt 117.0 kg
[2020-06-20 09:51] VITALS: BP 177/98
--- NOTE | 2020-06-20 10:21 | NUR ---
DRESSING CHANGED DONE. Patient discharged to home in stable condition. Written and verbal after care instructions given. Patient verbalizes understanding of instruction.
== END 2020-06-20 10:22 | disposition home or self-care (01) ==
LOC: ER 09:47
DX: L60.0 Ingrowing nail (principal); M79.671 Pain in right foot; I10 Essential (primary) hypertension; J45.909 Unspecified asthma, uncomplicated; K21.9 Gastro-esophageal reflux disease without esophagitis; E11.9 Type 2 diabetes mellitus without complications; F32.9 Major depressive disorder, single episode, unspecified; F41.9 Anxiety disorder, unspecified; F17.200 Nicotine dependence, unspecified, uncomplicated; Z98.890 Other specified postprocedural states; Z88.6 Allergy status to analgesic agent; Z88.1 Allergy status to other antibiotic agents; Z79.899 Other long term (current) drug therapy

== ENCOUNTER 2021-07-27 17:55 | Emergency (ER) | payer MEDICARE, OTHER ==
[~2021-07-27] VITALS: Ht 175.3 cm; Wt 106.6 kg
--- NOTE | 2021-07-27 18:10 | NUR ---
"Anxiety started Monday- Think im having adverse reaction to meds." Vitlas are within normal limits.
[2021-07-27] MEDS ORDERED: LORAZEPAM 1 MG TABLET ONE (18:46)
[2021-07-27] MEDS ORDERED: LORA-259 PO (18:51)
[2021-07-27 18:58] VITALS: BP 141/90
--- NOTE | 2021-07-27 18:58 | NUR ---
Patient discharged to home in stable condition. Written and verbal after care instructions given. Patient verbalizes understanding of instruction.
[2021-07-27] MEDS ORDERED: LORAZEPAM 1 MG TABLET PO ONE (19:00)
== END 2021-07-27 18:58 | disposition home or self-care (01) ==
LOC: ER 17:58
DX: F41.9 Anxiety disorder, unspecified (principal); I10 Essential (primary) hypertension; J45.909 Unspecified asthma, uncomplicated; F32.A Depression, unspecified; E11.9 Type 2 diabetes mellitus without complications; F17.200 Nicotine dependence, unspecified, uncomplicated; Z90.710 Acquired absence of both cervix and uterus; Z88.8 Allergy status to other drugs, medicaments and biological substances; Z79.899 Other long term (current) drug therapy

== ENCOUNTER 2021-09-06 19:24 | Emergency (ER) | payer MEDICARE, OTHER ==
[~2021-09-06] VITALS: Ht 175.3 cm; Wt 106.6 kg
[~2021-09-06 19:24] MED LIST changes: +LORA-259 PO
[2021-09-06 20:08] LABS: BASOPHILS # (AUTO) 0.1 K/uL (0.0-0.2); BASOPHILS % (AUTO) 0.9 % (0.0-2.0); EOSINOPHILS % (AUTO) 7.1 % (0.0-6.0); HEMATOCRIT 41 % (33-45); HEMOGLOBIN 13.7 g/dL (11.5-14.8); LYMPHOCYTES # (AUTO) 5.8 K/uL (0.8-4.8); LYMPHOCYTES % (AUTO) 51.9 % (20.0-44.0); MEAN CORPUSCULAR HGB CONC 33 g/dl (31.0-36.0); MEAN CORPUSCULAR VOLUME 91 fL (82-100); MONOCYTES # (AUTO) 0.5 K/uL (0.1-1.30); MONOCYTES % (AUTO) 4.8 % (2.0-12.0); NEUTROPHILS % (AUTO) 35.3 % (43.0-81.0); PLATELET COUNT (AUTO) 262 K/uL (150-450); RED BLOOD CELL COUNT(AUTO) 4.54 MIL/uL (4.0-5.2); WHITE BLOOD COUNT (AUTO) 11.2 K/uL (4.3-11.0)
[2021-09-06 20:16] LABS: CARBON DIOXIDE 30 mmol/L (21-32); CHLORIDE 100 mmol/L (98-107); GLUCOSE 126 mg/dL (74-106); SODIUM SERUM 137 mmol/L (136-145); UREA NITROGEN, BLOOD 7 mg/dL (7-18)
[2021-09-06] MEDS ORDERED: IOHEXOL-350 100 ML VIAL IV ONE (20:54)
[2021-09-06] MEDS ORDERED: diphenhydrAMINE HCL 50 MG/ML VIAL ONE (21:11)
[2021-09-06] MEDS ORDERED: methylPREDNISolone SOD SUCC 125 MG/2ML VIAL ONE (21:11)
[2021-09-06] MEDS ORDERED: FAMOTIDINE/PF INJ 20 MG/2 ML VIAL IV ONE ×2 (21:12→21:30)
[2021-09-06 21:20] LABS: EOSINOPHILS % (MANUAL) 9 % (0-4); LYMPHOCYTES % (MANUAL) 48 % (16-48); MONOCYTES % (MANUAL) 4 % (0-11.0); NEUTROPHILS % (MANUAL) 39 (42-76)
[2021-09-06] MEDS ORDERED: methylPREDNISolone SOD SUCC 125 MG/2ML VIAL IV ONE (21:30)
[2021-09-06] MEDS ORDERED: diphenhydrAMINE HCL 50 MG/ML VIAL IV ONE (21:30)
[2021-09-06] MEDS ORDERED: ONDANSETRON HCL/PF 4 MG/2 ML VIAL IVP ONE (22:00)
--- NOTE | 2021-09-06 22:05 | NUR ---
PATIENT BIB CG FOR C/O R NECK PAIN RADIATING TO R JAW SINCE AM. PATIENT IS A/OX4, RR EVEN AND UNLABORED NO SOB NOTED. PATIENT TAKEN TO ER BED 12, NO ACUTE DISTRESS NOTED. WILL CONTINUE TO MONITOR.
[2021-09-06] MEDS ORDERED: ONDANSETRON HCL/PF 4 MG/2 ML VIAL ONE (22:13)
--- NOTE | 2021-09-06 22:24 | NUR ---
IV removed. Catheter intact and site benign. Pressure and 4x4 applied to site. No bleeding noted.
--- NOTE | 2021-09-06 22:26 | NUR ---
Patient discharged to home in stable condition. Written and verbal after care instructions given. Patient verbalizes understanding of instruction.
[2021-09-06 22:27] VITALS: BP 122/80
== END 2021-09-06 22:27 | disposition home or self-care (01) ==
LOC: ER 19:26
DX: M43.6 Torticollis (principal); I10 Essential (primary) hypertension; J45.909 Unspecified asthma, uncomplicated; F32.A Depression, unspecified; F41.9 Anxiety disorder, unspecified; Z87.19 Personal history of other diseases of the digestive system; Z90.710 Acquired absence of both cervix and uterus; Z88.0 Allergy status to penicillin; Z88.8 Allergy status to other drugs, medicaments and biological substances; Z79.899 Other long term (current) drug therapy
CPT/HCPCS: 99285; 96374; 70498; 96375; 71045; 93005; 85025; 80048; 36415; 84484; 85007; J1200; J3490; J2930; J2405; Q9967

== ENCOUNTER 2022-04-14 16:23 | Emergency (ER) | payer MEDICARE, OTHER ==
[~2022-04-14] VITALS: Ht 167.6 cm; Wt 81.6 kg
[2022-04-14] MEDS ORDERED: IBUPROFEN 400 MG TABLET PO ONE (16:30)
--- NOTE | 2022-04-14 16:31 | NUR ---
CISCO PREDICTIVE MAINTENANCE TECHNICIAN AT BEDSIDE FOR EVAL.
[2022-04-14] MEDS ORDERED: IBUPROFEN 400 MG TABLET ONE (16:52)
[2022-04-14] MEDS ORDERED: IBUP-1957 PO (17:16)
[2022-04-14] MEDS ORDERED: ONDA4TAB5 PO (17:16)
[2022-04-14] MEDS ORDERED: ONDANSETRON HCL/PF 4 MG/2 ML VIAL ONE (17:23)
[2022-04-14] MEDS ORDERED: MECLIZINE HCL 25 MG TABLET ONE (17:24)
[2022-04-14] MEDS ORDERED: ONDANSETRON 4 MG TAB.RAPDIS ONE (17:26)
[2022-04-14] MEDS ORDERED: ONDANSETRON 4 MG TAB.RAPDIS PO ONE (17:30)
[2022-04-14] MEDS ORDERED: MECLIZINE HCL 12.5 MG TABLET PO ONE (17:30)
--- NOTE | 2022-04-14 17:49 | NUR ---
Patient discharged to home in stable condition. Written and verbal after care instructions given. Patient verbalizes understanding of instruction.
[2022-04-14 17:50] VITALS: BP 136/80
== END 2022-04-14 17:51 | disposition home or self-care (01) ==
LOC: ER 16:25
DX: S16.1XXA Strain of muscle, fascia and tendon at neck level, initial encounter (principal); S09.90XA Unspecified injury of head, initial encounter; I10 Essential (primary) hypertension; J45.909 Unspecified asthma, uncomplicated; K21.9 Gastro-esophageal reflux disease without esophagitis; E11.9 Type 2 diabetes mellitus without complications; F32.A Depression, unspecified; F41.9 Anxiety disorder, unspecified; K70.40 Alcoholic hepatic failure without coma; F17.200 Nicotine dependence, unspecified, uncomplicated; Z90.710 Acquired absence of both cervix and uterus; Z79.84 Long term (current) use of oral hypoglycemic drugs; Z88.0 Allergy status to penicillin; Z88.2 Allergy status to sulfonamides; Z88.6 Allergy status to analgesic agent; W01.0XXA Fall on same level from slipping, tripping and stumbling without subsequent striking against object, initial encounter; Y93.89 Activity, other specified; Y92.009 Unspecified place in unspecified non-institutional (private) residence as the place of occurrence of the external cause; Y99.8 Other external cause status
CPT/HCPCS: 99284; 72125; 73130; 70450; J8597; Q0162; J2405

== ENCOUNTER 2022-05-18 10:15 | Emergency (ER) | payer MEDICARE, OTHER ==
[~2022-05-18] VITALS: Ht 175.3 cm; Wt 108.9 kg
[~2022-05-18 10:15] MED LIST changes: +IBUP-1957 PO; +ONDA4TAB5 PO
--- NOTE | 2022-05-18 10:46 | NUR ---
dr. milian at bedside
[2022-05-18] MEDS ORDERED: DEXAMETHASONE SOD PHOSPHATE 10 MG/ML VIAL IV ONE (11:00)
[2022-05-18] MEDS ORDERED: IPRATROPIUM NEB FS 0.5 MG/2.5 ML AMPUL.NEB NEB ONE (11:00)
[2022-05-18] MEDS ORDERED: ALBUTEROL FS 2.5 MG/3 ML VIAL.NEB CONTNEB ONE (11:00)
[2022-05-18] MEDS ORDERED: Magnesium 1GM/D5W 100ML PREMIX 100 ML IV ONE ×2 (11:06→12:15)
[2022-05-18] MEDS ORDERED: DEXAMETHASONE SOD PHOSPHATE 10 MG/ML VIAL ONE (11:06)
--- NOTE | 2022-05-18 11:29 | NUR ---
PT IN BED 6, BREATHING SLIGHTLY TACHYPNEIC 96% O2SAT ROOM AIR. C/O ASTHMA EXACERBATION, SOB. ON AUSCULTATION WHEEZING AND DIMISHED BREATHSOUNDS BILATERALLY DAUGHTER AT BEDSIDE. WHILE IN DISTRESS TOLORATING ROOM AIR AND ABLE TO MAINTAIN O2 >95%, PT IS ANXIOUS. IN BED HI FLOWLERS BED LOCKED IN LOWEST POSTION.
[2022-05-18 11:38] LABS: BASOPHILS # (AUTO) 0.1 K/uL (0.0-0.2); BASOPHILS % (AUTO) 1.2 % (0.0-2.0); EOSINOPHILS % (AUTO) 4.5 % (0.0-6.0); HEMATOCRIT 44 % (33-45); HEMOGLOBIN 14.5 g/dL (11.5-14.8); LYMPHOCYTES # (AUTO) 3.5 K/uL (0.8-4.8); LYMPHOCYTES % (AUTO) 34.7 % (20.0-44.0); MEAN CORPUSCULAR HGB CONC 33 g/dl (31.0-36.0); MEAN CORPUSCULAR VOLUME 88 fL (82-100); MONOCYTES # (AUTO) 0.5 K/uL (0.1-1.30); MONOCYTES % (AUTO) 5.4 % (2.0-12.0); NEUTROPHILS # (AUTO) 5.4 K/uL (1.8-8.9); NEUTROPHILS % (AUTO) 54.2 % (43.0-81.0); PLATELET COUNT (AUTO) 257 K/uL (150-450); RED BLOOD CELL COUNT(AUTO) 5.02 MIL/uL (4.0-5.2)
[2022-05-18 11:45] LABS: CARBON DIOXIDE 29 mmol/L (21-32); CHLORIDE 94 mmol/L (98-107); CREATININE 0.9 mg/dL (0.6-1.3); POTASSIUM 4.8 mmol/L (3.5-5.1); SODIUM SERUM 130 mmol/L (136-145); UREA NITROGEN, BLOOD 11 mg/dL (7-18)
[2022-05-18 11:54] LABS: GLUCOSE 376 mg/dL (74-106)
[2022-05-18] MEDS: Magnesium 1GM/D5W 100ML PREMIX 100 ML IV SCH ×2 (11:54→12:26)
[2022-05-18] MEDS ORDERED: ALBUTEROL FS 2.5 MG/3 ML VIAL.NEB ONE (12:01)
[2022-05-18] MEDS ORDERED: IPRATROPIUM NEB FS 0.5 MG/2.5 ML AMPUL.NEB ONE (12:02)
--- NOTE | 2022-05-18 12:05 | NUR ---
RT NOTE BREATHING TX GIVEN LATE. RT UNAWARE OF BREATHING TREATMENT. SpO2 96% ON ROOM AIR. TOLERATING WELL AT THIS TIME. WILL CONTINUE TO MONITOR.
--- NOTE | 2022-05-18 12:16 | NUR ---
Russ lay in ED - 05/18/22 at 1217 by RODY MD AWARE OF ALLERGY TO MORPHINE. AWAITING FOR MD ORDERS NPC CONTINUES
[2022-05-18] MEDS ORDERED: IV NS 0.9% 1,000 ML IV ONE (12:30)
[2022-05-18] MEDS ORDERED: ALBU0.633 NEB (13:48)
[2022-05-18 14:05] VITALS: BP 150/80
--- NOTE | 2022-05-18 14:09 | NUR ---
REMOVED IV ACL 20G STOP TIME 1353 TOLERATED
--- NOTE | 2022-05-18 14:10 | NUR ---
PT DISCHRGED [id number]
== END 2022-05-18 13:55 | disposition home or self-care (01) ==
LOC: ER 10:28
DX: J45.901 Unspecified asthma with (acute) exacerbation (principal); E11.65 Type 2 diabetes mellitus with hyperglycemia; I10 Essential (primary) hypertension; K21.9 Gastro-esophageal reflux disease without esophagitis; F32.A Depression, unspecified; F41.9 Anxiety disorder, unspecified; Z90.49 Acquired absence of other specified parts of digestive tract; Z98.890 Other specified postprocedural states; F17.200 Nicotine dependence, unspecified, uncomplicated; Z79.899 Other long term (current) drug therapy; Z20.822 Contact with and (suspected) exposure to COVID-19; Z88.0 Allergy status to penicillin; Z88.1 Allergy status to other antibiotic agents
CPT/HCPCS: 99285; 96365; 71045; 96366; 96375; 87426; 93005; 85025; 80048; 36415; 84484; 94644; J1100; J3475 ×2; C9803

== ENCOUNTER 2022-05-30 20:33 | Emergency (ER) | payer MEDICARE, OTHER ==
[~2022-05-30] VITALS: Ht 172.7 cm; Wt 108.9 kg
[~2022-05-30 20:33] MED LIST changes: +ALBU0.633 NEB
[2022-05-30] MEDS ORDERED: ALBUTEROL FS 2.5 MG/3 ML VIAL.NEB ONE (21:46)
[2022-05-30] MEDS ORDERED: IPRATROPIUM NEB FS 0.5 MG/2.5 ML AMPUL.NEB NEB ONE (22:00)
[2022-05-30] MEDS ORDERED: ALBUTEROL FS 2.5 MG/3 ML VIAL.NEB CONTNEB ONE (22:00)
[2022-05-30] MEDS ORDERED: predniSONE 20 MG TABLET PO ONE (22:00)
[2022-05-30] MEDS ORDERED: PRED50TA PO (22:43)
[2022-05-30] MEDS ORDERED: ALBU18HF2 INH (22:53)
--- NOTE | 2022-05-30 23:06 | NUR ---
Patient discharged to home in stable condition. Written and verbal after care instructions given. Patient verbalizes understanding of instruction.
[2022-05-31 02:26] VITALS: BP 138/87
== END 2022-05-31 02:26 | disposition home or self-care (01) ==
LOC: ER 20:34
DX: J45.901 Unspecified asthma with (acute) exacerbation (principal); I10 Essential (primary) hypertension; K21.9 Gastro-esophageal reflux disease without esophagitis; E11.9 Type 2 diabetes mellitus without complications; F32.A Depression, unspecified; F41.9 Anxiety disorder, unspecified; F17.200 Nicotine dependence, unspecified, uncomplicated; Z90.710 Acquired absence of both cervix and uterus; Z79.899 Other long term (current) drug therapy; Z60.2 Problems related to living alone; Z88.0 Allergy status to penicillin; Z88.1 Allergy status to other antibiotic agents
CPT/HCPCS: 94799-TC

== ENCOUNTER 2023-06-24 11:32 | Emergency (ER) | payer MEDICARE, OTHER ==
[~2023-06-24] VITALS: Ht 172.7 cm; Wt 106.6 kg
[~2023-06-24 11:32] MED LIST changes: +MECL-159 PO; +PRED50TA PO
[2023-06-24] MEDS: IV NS 0.9% 1,000 ML BAG IV ONE (12:10)
[2023-06-24 12:27] LABS: BASOPHILS # (AUTO) 0.1 K/uL (0.0-0.2); BASOPHILS % (AUTO) 0.8 % (0.0-2.0); CALCIUM, SERUM 8.3 mg/dL (8.5-10.1); CREATININE 0.9 mg/dL (0.6-1.3); EOSINOPHILS # (AUTO) 0.6 K/uL (0.0-0.7); EOSINOPHILS % (AUTO) 5.8 % (0.0-6.0); HEMATOCRIT 41 % (33-45); HEMOGLOBIN 13.4 g/dL (11.5-14.8); LYMPHOCYTES # (AUTO) 3.9 K/uL (0.8-4.8); LYMPHOCYTES % (AUTO) 36.3 % (20.0-44.0); MEAN CORPUSCULAR HEMOGLOBIN 28 PG (26.0-33.0); MEAN CORPUSCULAR HGB CONC 33 g/dl (31.0-36.0); MEAN CORPUSCULAR VOLUME 85 fL (82-100); MONOCYTES # (AUTO) 0.5 K/uL (0.1-1.30); MONOCYTES % (AUTO) 4.7 % (2.0-12.0); NEUTROPHILS # (AUTO) 5.6 K/uL (1.8-8.9); NEUTROPHILS % (AUTO) 52.4 % (43.0-81.0); PLATELET COUNT (AUTO) 262 K/uL (150-450); POTASSIUM 4.3 mmol/L (3.5-5.1); RED BLOOD CELL COUNT(AUTO) 4.77 MIL/uL (4.0-5.2); RED CELL DISTRIBUTION WIDTH 15.5 % (11.5-15.0); WHITE BLOOD COUNT (AUTO) 10.6 K/uL (4.3-11.0)
[2023-06-24 13:01] LABS: ABG BASE EXCESS -1.3 mmol/L; ABG OXYGEN SATURATION 95.7 % (92.0-98.5); ABG PCO2 39.3 mmHg (35.0-45.0); ABG PH 7.393 (7.350-7.450); ABG PO2 80.7 mmHg (75.0-100.0); ABG TOTAL HEMOGLOBIN 13.7 G/dL (12.0-16.0); COHb 3.1 % (0.5-1.5); MetHb 0.2 % (0.0-1.5); O2Hb 92.5 % (94.0-97.0); SITE, ABG Left Radial
[2023-06-24 13:21] VITALS: BP 139/77; TEMP 98.5; O2SAT 99
== END 2023-06-24 13:25 | disposition home or self-care (01) ==
LOC: ER 11:35
DX: E11.65 Type 2 diabetes mellitus with hyperglycemia (principal); I10 Essential (primary) hypertension; J45.909 Unspecified asthma, uncomplicated; K21.9 Gastro-esophageal reflux disease without esophagitis; F32.A Depression, unspecified; F41.9 Anxiety disorder, unspecified; F17.200 Nicotine dependence, unspecified, uncomplicated; Z90.710 Acquired absence of both cervix and uterus; Z88.0 Allergy status to penicillin; Z88.8 Allergy status to other drugs, medicaments and biological substances; Z60.2 Problems related to living alone; Z79.4 Long term (current) use of insulin; Z79.84 Long term (current) use of oral hypoglycemic drugs; Z79.899 Other long term (current) drug therapy
CPT/HCPCS: 99284; 96360; 93005; 82803; 85025; 80048; 82010; 36415; 82962; 36600 ×2; J7030 ×2

== ENCOUNTER 2023-12-22 08:29 | Inpatient (IN) | payer MEDICARE, OTHER ==
[2023-12-22] VITALS (8 sets, daily range): BP systolic 108–145; BP diastolic 68–78; TEMP 98.4–98.6; O2SAT 90–98
[~2023-12-22] VITALS: Ht 172.7 cm; Wt 113.4 kg
[2023-12-22] MEDS ORDERED: methylPREDNISolone SOD SUCC 125 MG/2ML VIAL ONE (09:00)
[2023-12-22] MEDS ORDERED: ALBUTEROL FS 2.5 MG/3 ML VIAL.NEB ONE (09:02)
[2023-12-22] MEDS ORDERED: IPRATROPIUM NEB FS 0.5 MG/2.5 ML AMPUL.NEB ONE (09:02)
[2023-12-22] MEDS: ALBUTEROL FS 2.5 MG/3 ML VIAL.NEB NEB ONE (09:07)
[2023-12-22] MEDS: IPRATROPIUM NEB FS 0.5 MG/2.5 ML AMPUL.NEB NEB ONE (09:07)
[2023-12-22] MEDS: methylPREDNISolone SOD SUCC 125 MG/2ML VIAL IV ONE (09:17)
[2023-12-22] MEDS: IV NS 0.9% 1,000 ML BAG IV ONE (09:17)
[2023-12-22 09:19] LABS: BASOPHILS # (AUTO) 0.1 K/uL (0.0-0.2); EOSINOPHILS # (AUTO) 0.5 K/uL (0.0-0.7); EOSINOPHILS % (AUTO) 5.1 % (0.0-6.0); HEMATOCRIT 37 % (33-45); HEMOGLOBIN 12.5 g/dL (11.5-14.8); LYMPHOCYTES # (AUTO) 3.2 K/uL (0.8-4.8); LYMPHOCYTES % (AUTO) 33.1 % (20.0-44.0); MEAN CORPUSCULAR HEMOGLOBIN 28 PG (26.0-33.0); MEAN CORPUSCULAR HGB CONC 34 g/dl (31.0-36.0); MEAN CORPUSCULAR VOLUME 84 fL (82-100); MONOCYTES # (AUTO) 0.4 K/uL (0.1-1.30); MONOCYTES % (AUTO) 3.9 % (2.0-12.0); NEUTROPHILS # (AUTO) 5.4 K/uL (1.8-8.9); NEUTROPHILS % (AUTO) 56.9 % (43.0-81.0); PLATELET COUNT (AUTO) 240 K/uL (150-450); RED BLOOD CELL COUNT(AUTO) 4.43 MIL/uL (4.0-5.2); RED CELL DISTRIBUTION WIDTH 16.1 % (11.5-15.0); WHITE BLOOD COUNT (AUTO) 9.5 K/uL (4.3-11.0)
[2023-12-22 09:33] LABS: ALANINE AMINOTRANSFERASE 25 U/L (12-78); ALBUMIN 3.1 g/dL (3.4-5.0); ALKALINE PHOSPHATASE 116 U/L (46-116); ASPARTATE AMINOTRANSFERASE 20 U/L (15-37); BILIRUBIN,DIRECT 0.1 mg/dL (0.0-0.2); BILIRUBIN,TOTAL 0.3 mg/dL (0.2-1.0); CALCIUM, SERUM 9.6 mg/dL (8.5-10.1); CARBON DIOXIDE 27 mmol/L (21-32); CHLORIDE 100 mmol/L (98-107); CREATININE 0.9 mg/dL (0.6-1.3); GLUCOSE 235 mg/dL (74-106); POTASSIUM 4.1 mmol/L (3.5-5.1); SODIUM SERUM 137 mmol/L (136-145); TOTAL PROTEIN, SERUM 7.5 g/dL (6.4-8.2); UREA NITROGEN, BLOOD 9 mg/dL (7-18)
[2023-12-22] MEDS ORDERED: BECL10.62 IH (11:43)
[2023-12-22] MEDS ORDERED: INSU100V7 SQ (11:43)
[2023-12-22] MEDS ORDERED: ESOM40CA PO (11:43)
[2023-12-22] MEDS ORDERED: INSU100V11 SQ (11:43)
[2023-12-22] MEDS ORDERED: CLON1TAB12 PO (11:43)
[2023-12-22] MEDS ORDERED: ALBU8.5H8 IH (11:43)
[2023-12-22] MEDS ORDERED: METF-440 PO (11:43)
[2023-12-22] MEDS ORDERED: NATE120T6 PO (11:43)
[2023-12-22] MEDS ORDERED: MAG HYDROX/AL HYDROX/SIMETH 30 ML UDC PO PRN (14:00)
[2023-12-22] MEDS ORDERED: ONDANSETRON HCL/PF 4 MG/2 ML VIAL IVP PRN (14:00)
[2023-12-22] MEDS ORDERED: HYDROCODONE/APAP 5/325MG TABLET PO PRN (14:00)
[2023-12-22] MEDS ORDERED: MAGNESIUM HYDROXIDE 30 ML UDC PO PRN (14:00)
[2023-12-22] MEDS ORDERED: ACETAMINOPHEN 325 MG TABLET PO PRN (14:00)
[2023-12-22] MEDS ORDERED: ALBUTEROL SULFATE 8 GM HFA.AER.AD IH SCH (14:00)
[2023-12-22] MEDS ORDERED: Z GUARD REMEDY 4 OZ OINT TP PRN (14:00)
[2023-12-22] MEDS: ENOXAPARIN SODIUM 40 MG/0.4 ML DISP.SYRIN SQ SCH (14:00)
[2023-12-22] MEDS: ALBUTEROL FS 2.5 MG/0.5 ML VIAL.NEB IH SCH (15:01)
[2023-12-22] MEDS ORDERED: DEXTROSE 50%-WATER 50 ML DISP.SYRIN IV PRN (15:30)
[2023-12-22] MEDS ORDERED: *INSULIN REGULAR(HUMULIN R)HUM 100 UNIT/ML VIAL SQ PRN (15:30)
[2023-12-22] MEDS: NICOTINE PATCH (14MG) 14 MG PATCH.TD24 TD SCH (15:41)
[2023-12-22] MEDS: INSULIN REGULAR, HUMAN 100 UNIT/ML 3 ML VIAL SQ PRN (16:06)
[2023-12-22] MEDS: BLOOD SUGAR DIAGNOSTIC 1 EACH STRIP VI SCH (16:06)
[2023-12-22] MEDS ORDERED: IBUPROFEN 800 MG TABLET PO PRN (16:30)
[2023-12-22] MEDS ORDERED: HYDROCODONE/APAP 10/325MG TABLET PO PRN (16:30)
[2023-12-22] MEDS: GABAPENTIN 300 MG CAPSULE PO SCH ×2 (17:00→21:09)
[2023-12-22] MEDS: clonazePAM 1 MG TABLET PO SCH ×2 (17:00→21:08)
[2023-12-22] MEDS: IBUPROFEN 400 MG TABLET PO PRN (17:10)
[2023-12-22] MEDS: METFORMIN 500 MG TABLET PO SCH (17:10)
[2023-12-22] MEDS: IPRATROPIUM NEB FS 0.5 MG/2.5 ML AMPUL.NEB NEB SCH (20:36)
[2023-12-22] MEDS: methylPREDNISolone SOD SUCC 125 MG/2ML VIAL IV SCH ×2 (21:00→23:05)
[2023-12-22] MEDS: CLONIDINE HCL 0.1 MG TABLET PO SCH (21:00)
[2023-12-22] MEDS: LURASIDONE HCL 40 MG PO SCH (21:09)
[2023-12-22] MEDS: PANTOPRAZOLE 40 MG TABLET.DR PO SCH (21:15)
[2023-12-22] MEDS: INSULIN GLARGINE, 100 UNIT/ML CARTRIDGE SQ SCH (21:25)
[2023-12-22] MEDS ORDERED: Medication Not On Formulary EA (Beclomethasone Dipropionate (Qvar Redihaler) 2 PUFF) IH SCH (22:00)
[2023-12-23] VITALS (9 sets, daily range): BP systolic 120–130; BP diastolic 61–81; TEMP 98.2–99.3; O2SAT 92–99
[2023-12-23] MEDS ORDERED: methylPREDNISolone SOD SUCC 125 MG/2ML VIAL IV SCH (05:00)
[2023-12-23 06:37] LABS: BASOPHILS # (AUTO) 0.1 K/uL (0.0-0.2); BASOPHILS % (AUTO) 0.7 % (0.0-2.0); EOSINOPHILS % (AUTO) 0.1 % (0.0-6.0); HEMATOCRIT 39 % (33-45); HEMOGLOBIN 12.7 g/dL (11.5-14.8); LYMPHOCYTES # (AUTO) 1.9 K/uL (0.8-4.8); MEAN CORPUSCULAR HEMOGLOBIN 28 PG (26.0-33.0); MEAN CORPUSCULAR HGB CONC 33 g/dl (31.0-36.0); MEAN CORPUSCULAR VOLUME 84 fL (82-100); MONOCYTES # (AUTO) 0.4 K/uL (0.1-1.30); MONOCYTES % (AUTO) 3.1 % (2.0-12.0); NEUTROPHILS # (AUTO) 9.3 K/uL (1.8-8.9); NEUTROPHILS % (AUTO) 80.1 % (43.0-81.0); PLATELET COUNT (AUTO) 241 K/uL (150-450); RED BLOOD CELL COUNT(AUTO) 4.62 MIL/uL (4.0-5.2); RED CELL DISTRIBUTION WIDTH 15.7 % (11.5-15.0); WHITE BLOOD COUNT (AUTO) 11.7 K/uL (4.3-11.0)
[2023-12-23 06:56] LABS: CALCIUM, SERUM 9.1 mg/dL (8.5-10.1); CREATININE 0.7 mg/dL (0.6-1.3); MAGNESIUM 2.1 mg/dL (1.8-2.4); PHOSPHORUS 3.3 mg/dL (2.5-4.9); POTASSIUM 4.8 mmol/L (3.5-5.1)
[2023-12-23] MEDS: methylPREDNISolone SOD SUCC 125 MG/2ML VIAL IV SCH (07:13)
[2023-12-23] MEDS ORDERED: PRED5TAB48 PO (08:20)
[2023-12-23] MEDS: LamoTRIgine 100 MG TABLET PO SCH (09:09)
[2023-12-23] MEDS: ESCITALOPRAM OXALATE (10 MG) 10 MG TABLET PO SCH (09:10)
== END 2023-12-23 15:04 | disposition home health service (06) | DRG 202 ==
LOC: ER 08:49 → TELE 13:16
PROVIDERS: ADMIT Internal Medicine; ATTEND Internal Medicine
DX: J45.901 Unspecified asthma with (acute) exacerbation (principal); J96.01 Acute respiratory failure with hypoxia; I35.0 Nonrheumatic aortic (valve) stenosis; F41.0 Panic disorder [episodic paroxysmal anxiety]; F17.200 Nicotine dependence, unspecified, uncomplicated; K21.9 Gastro-esophageal reflux disease without esophagitis; Z98.890 Other specified postprocedural states; Z90.710 Acquired absence of both cervix and uterus; Z88.0 Allergy status to penicillin; Z88.1 Allergy status to other antibiotic agents; Z88.6 Allergy status to analgesic agent; Z79.84 Long term (current) use of oral hypoglycemic drugs; Z79.4 Long term (current) use of insulin; Z79.899 Other long term (current) drug therapy; Z79.51 Long term (current) use of inhaled steroids; F32.9 Major depressive disorder, single episode, unspecified; E11.40 Type 2 diabetes mellitus with diabetic neuropathy, unspecified; E66.9 Obesity, unspecified; Z68.38 Body mass index [BMI] 38.0-38.9, adult; K76.0 Fatty (change of) liver, not elsewhere classified; Z83.3 Family history of diabetes mellitus; I10 Essential (primary) hypertension; J44.9 Chronic obstructive pulmonary disease, unspecified
CPT/HCPCS: 36415; 71045-TC; 80048-TC; 80076-TC; 82962-TC; 83735-TC; 83880; 84100-TC; 84484-TC; 85025-TC; 94760-TC; 94799-TC; G0378; J1650; J1815; J2919; J7030